=== PATIENT | male | born 1950 | race Caucasian/White ===

== ENCOUNTER 2016-08-14 14:37 | Emergency (ER) | payer MEDICARE, MEDICAID ==
[2016-08-14 15:29] VITALS: BP 170/102
--- NOTE | 2016-08-14 15:48 | UC ---
Lower Extremity/Ankle HPI - HPI Summary HPI Summary: 3 DAYS OF LEFT GREAT TOE PAIN AND REDNESS/SWELLING OF LEFT FOOT AND ANKLE. DENIES ANY TRAUMA OR INJURY. CONCERNED ABOUT THE POSSIBILITY OF GOUT. HAS HAD SIMILAR SX IN THE PAST THAT RESOLVED AFTER TAKING IBUPROFEN. - History of Current Complaint Chief Complaint: UCLowerExtremity Stated Complaint: TOE AND ANKLE PAIN Time Seen by Provider: 08/14/16 15:23 Hx Obtained From: Patient Onset/Duration: Gradual Onset, Lasting Days, Still Present Severity Initially: Moderate Severity Currently: Moderate Pain Intensity: 5 Pain Scale Used: 0-10 Numeric Aggravating Factor(s): Standing, Ambulation Alleviating Factor(s): Rest Able to Bear Weight: Yes - WITH PAIN - Allergies/Home Medications Allergies/Adverse Reactions: Allergies Allergy/AdvReac Type Severity Reaction Status Date / Time No Known Allergies Allergy Verified 08/14/16 15:19 Home Medications: Home Medications Loratadine [Claritin] 1 cap DAILY 08/14/16 [History Confirmed 08/14/16] PMH/Surg Hx/FS Hx/Imm Hx Endocrine History Of: Denies: Diabetes Cardiovascular History Of: Reports: Cardiac Disorders - dx cath x 1: non, Hypertension Denies: Congestive Heart Failure Respiratory History Of: Reports: COPD GI/ History Of: Denies: Renal Disease Other History Of: Negative For: Anticoagulant Therapy - Surgical History Surgical History: Yes Surgery Procedure, Year, and Place: right ankle - Family History Known Family History: Positive: Diabetes - Social History Alcohol Use: Daily Substance Use Type: None Smoking Status (MU): Never Smoked Tobacco - Immunization History Most Recent Influenza Vaccination: Fall 2015 Review of Systems Constitutional: Negative Skin: Other - ERYTHEMA Respiratory: Negative Cardiovascular: Negative Gastrointestinal: Negative Musculoskeletal: Arthralgia, Decreased ROM, Edema All Other Systems Reviewed And Are Negative: Yes Physical Exam Triage Information Reviewed: Yes Appearance: Well-Appearing, No Pain Distress, Well-Nourished Vital Signs: Initial Vital Signs Temp 98.7 F 08/14/16 15:21 Pulse 79 08/14/16 15:21 Resp 18 08/14/16 15:21 BP 170/102 08/14/16 15:21 Pulse Ox 97 08/14/16 15:21 Vital Signs Reviewed: Yes Eyes: Positive: Conjunctiva Clear ENT: Positive: Hearing grossly normal Neck: Positive: Supple Respiratory: Positive: No respiratory distress, No accessory muscle use Cardiovascular: Positive: Pulses Normal - 2+ DP PULSES Abdomen Description: Positive: Soft Musculoskeletal: Positive: ROM Limited @ - LEFT ANKLE, Edema @ - LEFT FOOT AND ANKLE 2+ PITTING EDEMA, Other: - TTP LEFT GREAT TOE Neurological: Positive: Alert Psychological: Positive: Age Appropriate Behavior Skin: Positive: Other - VENOUS STASIS HYPERPIGMENTATION BILATERAL LOWER EXTREMITIES. ERYTHEMA LEFT DISTAL FOOT AND GREAT TOE Diagnostics - Radiology LEFT FOOT/ANKLE XRAYS Xray Interpretation: No Acute Changes Radiology Interpretation Completed By: Radiologist Lower Extremity Course/Dx - Differential Dx/Diagnosis Provider Diagnoses: PROBABLE GOUT LEFT GREAT TOE Discharge - Discharge Plan Condition: Stable Disposition: HOME Prescriptions: predniSONE TAB* [Deltasone TAB*] 40 mg PO DAILY #10 tab Patient Education Materials: Low Purine Diet (ED), Gout (ED) Referrals: Richar Pope MD [Medical Doctor] - 2 Weeks Additional Instructions: YOUR XRAYS TODAY WERE UNREMARKABLE. ONCE YOU ARE SYMPTOM FREE FOR 2 WEEKS FOLLOW -UP WITH YOUR PCP AND GET LAB WORK DONE TO EVALUATE FOR GOUT. IF YOUR URIC ACID LEVEL IS ELEVATED YOU MAY BENEFIT FROM A DAILY MEDICATION TO PREVENT FUTURE GOUTY FLARES.
--- NOTE | 2016-08-14 16:28 | RAD ---
INDICATION: Swelling and pain in the great toe and ankle after eating cheese COMPARISON: None. TECHNIQUE: 3 views of the left foot 3 views of the left ankle were obtained. FINDINGS: The adequately corticated bones are properly aligned. Joint spaces appear maintained. No fracture, dislocation or focal bony abnormality is seen. IMPRESSION: NORMAL RADIOGRAPH OF THE LEFT FOOT AND ANKLE. If the patient's symptoms persist, follow-up imaging is recommended.
== END 2016-08-14 17:00 | disposition home or self-care (01) ==
LOC: UCEAST 14:37
DX: M79.675 Pain in left toe(s) (principal); I10 Essential (primary) hypertension; J44.9 Chronic obstructive pulmonary disease, unspecified
CPT/HCPCS: 99212; G0463

== ENCOUNTER 2019-06-03 09:10 | Emergency (ER) | payer MEDICARE, MEDICAID ==
--- OUTSIDE RECORDS SUMMARY | 2019-06-03 09:19 | XMS REPORT | Continuity of Care Document ---
:1950 External Reference #:[id number] Author Name Elena De Jesus MD (transmitted by agent of provider Darby Grissom) Address [address], [address] [place] [id number] Care Team Providers Name Role Phone Harjeet Blanton MD - Surgery Care Team Information Labor Operator [phone] Elena De Jesus MD - Internal Medicine Care Team Information Labor Operator [phone] Problems Active Problems Provider Date Essential hypertension Richar Pope M.D. Onset: 09/04/2011 Chronic obstructive lung disease Richar Pope M.D. Onset: 09/04/2011 Dyspnea Richar Pope M.D. Onset: 09/04/2011 Obesity Richar Pope M.D. Onset: 09/04/2011 Benign prostatic hypertrophy with Richar Pope M.D. Onset: 09/04/2011 outflow obstruction Electrocardiogram abnormal Haley Daley M.D. Onset: 09/18/2011 Morbid obesity Haley Daley M.D. Onset: 09/18/2011 Umbilical hernia Richar Pope M.D. Onset: 09/26/2011 Benign essential hypertension Haley Daley M.D. 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 Onset: 02/26/2012 Mixed hyperlipidemia Richar Pope M.D. Onset: 04/21/2012 Lymphedema Richar Pope M.D. Onset: 04/21/2012 Acute bronchitis Richar Pope M.D. Onset: 05/05/2012 Primary cardiomyopathy Haley Daley M.D. Onset: 08/01/2012 Coronary arteriosclerosis Haley Daley M.D. Onset: 08/01/2012 Palpitations Haley Daley M.D. Onset: 08/01/2012 Syncope and collapse [place] [facility] Schedule Onset: 08/22/2012 Edema Haley Daley M.D. Onset: 04/19/2014 Tachycardia Haley Daley M.D. Onset: 04/19/2014 Type 2 diabetes mellitus Richar Poep M.D. Onset: 12/16/2015 Adult health examination Richar Pope M.D. Onset: 01/30/2017 Social History Type Date Description Comments Sex Unknown Tobacco Use Start: Unknown Smoked 2/12 pack for 35 Quit in 2004 years ETOH Use Consumes 1 six pack of beer per day ETOH Use Past two days drank a 12 pack each day Tobacco Use Start: Unknown End: Patient is a former Unknown smoker Recreational Drug Use Denies Drug Use Smoking Status Reviewed: 05/26/19 Patient is a former smoker Exercise Type/Frequency Does not exercise Allergies, Adverse Reactions, Alerts Active Allergies Reaction Severity Comments Date Simvastatin Severe Rash 04/21/2012 Inactive Allergies NKDA 09/04/2011 Medications Active Medications SIG Qnty Indications Ordering Date Provider Advair Diskus 1 puff po bid 1units 496 [facility], 05/26/2019 250-50mcg/Dose MD Aerosol Loratadine take one 90caps J30.9 [facility], 05/26/2019 10mg Capsules capsule at MD night daily Proair HFA inhale 1 puff 8.5units J44.9 [facility], 2018 108(90Base) mcg/Act by mouth every MD Aerosol 6 hours Hydrochlorothiazide take 1 tablet 90tabs I10 [facility], 07/23/2018 50mg Tablets by mouth once MD daily Metoprolol Tartrate take 1 tablet 60tabs [facility], 09/22/2012 25mg Tablets by mouth twice MD a day Immunizations CPT Code Status Date Vaccine Reaction Lot # [id number] Given 07/24/2018 Pneumonia Vaccine 31874 Given 07/23/2018 Pneumonia Vaccine 57686 Given 03/24/2018 Fluzone High Dose 09460 Given 03/26/2017 Influenza Virus Vaccine, Quadrivalent, Split, Preservative Free [id number] Given 07/25/2016 Pneumococcal Conjugate no immediate reaction [id number] Vaccine 13 Valent For noted ... hh Intramuscular Use 87393 Given 01/25/2016 Fluzone High Dose Q2037 Given 06/09/2015 Fluvirin Im 3Yrs And Older 45162 Given 04/30/2014 Flu Vaccine Split Virus [id number] Preservative Free For Indiv 3Yr Older Q2039 Given 03/16/2013 Flu Vaccine NOS 09038 Given 09/26/2011 Pneumonia Vaccine [id number] 31236 Given 09/26/2011 Tdap - [id number] Tetanus/Diptheria/Acellular Pertussis [id number] Ordered 03/01/2012 Fluzone High Dose Vital Signs Date Vital Result Comment 05/26/2019 2:00pm Height 67 inches 5'7" Weight 263.00 lb Heart Rate 70 /min BP Systolic Sitting 133 mmHg BP Diastolic Sitting 71 mmHg Body Temperature 97.9 F O2 % BldC Oximetry 94 % BMI (Body Mass Index) 41.2 kg/m2 02/18/2019 3:15pm Height 67 inches 5'7" Weight 260.00 lb with shoes Heart Rate 60 /min BP Systolic Sitting 140 mmHg lue large cuff BP Diastolic Sitting 80 mmHg lue large cuff BP Systolic Standing 132 mmHg lue large cuff BP Diastolic Standing 74 mmHg lue large cuff Respiratory Rate 16 /min BMI (Body Mass Index) 40.7 kg/m2 Ejection Fraction 50-55% echo.08/28/18 Results Test Acquired Date Facility Test Result H/L Range Note Laboratory test 05/26/2019 [facility] Hemoglobin A1c 6.5 5-7 finding Order 02/13/2019 [facility] hemossure negative [address] [place] [address] [phone] Comp Metabolic 02/09/2019 [facility] Sodium 138 mmol/L Normal 135-[address] [place] [address] [phone] Potassium 3.6 mmol/L Normal 3.5-5.0 Chloride 95 mmol/L Low 101-111 Co2 Carbon Dioxide 35 mmol/L High 22-32 Anion Gap 8 mmol/L Normal 2-11 Glucose 125 mg/dL High 70-100 Blood Urea Nitrogen 15 mg/dL Normal 6-24 Creatinine 1.00 mg/dL Normal 0.67-1.17 BUN/Creatinine Ratio 15.0 Normal 8-20 Calcium 9.3 mg/dL Normal 8.6-10.3 Total Protein 7.0 g/dL Normal 6.4-8.9 Albumin 4.4 g/dL Normal 3.2-5.2 Globulin 2.6 g/dL Normal 2-4 Albumin/Globulin Ratio 1.7 Normal 1-3 Total Bilirubin 0.70 mg/dL Normal 0.2-1.0 Alkaline Phosphatase 84 U/L Normal 34-104 Alt 22 U/L Normal 7-52 Ast 21 U/L Normal 13-39 Egfr Non- 74.3 >60 Egfr 89.9 >60 1 Urine Microalbumin 02/09/2019 [facility] Ur Microalbumin 20.7 mg /L Random [address] (mg/L) [place] [address] [phone] Urine Creatinine 162.99 mg/dL Urine Microalbumin/Creatinine 12.7 Normal <31 Laboratory test finding 02/09/2019 [facility] In House Hemoglobin A1c 6.9 5-7 1 Because ethnic data is not always readily available, this report includes an eGFR for both -Americans and non- Americans. The National Kidney Disease Education Program (NKDEP) does not endorse the use of the MDRD equation for patients that are not between the ages of 18 and 70, are , have extremes of body size, muscle mass, or nutritional status, or are non- or non-. According to the National Kidney Foundation, irrespective of diagnosis, the stage of the disease is based on the level of kidney function: Stage Description GFR(mL/min/1.73 m(2)) 1 Kidney damage with normal or decreased GFR 90 2 Kidney damage with mild decrease in GFR 60-89 3 Moderate decrease in GFR 30-59 4 Severe decrease in GFR 15-29 5 Kidney failure <15 (or dialysis) Procedures Date Code Description Status 02/18/2019 34692 EKG Tracing & Interpretation Completed 02/17/2019 514569964 Diabetic Retinal Eye Exam Completed Medical Devices Description No Information Available Encounters Type Date Location Provider Dx Diagnosis Office Visit 02/18/2019 [facility] Harjeet Bright, I10 Essential ( primary) 4:00p Of [facility] DO FACC hypertension E11.9 Type 2 diabetes mellitus without complications F10.20 Alcohol dependence, uncomplicated Z68.41 Body mass index (BMI) 40.0-44.9, adult E66.8 Other obesity J44.9 Chronic obstructive pulmonary disease, unspecified F17.201 Nicotine dependence, unspecified, in remission R94.31 Abnormal electrocardiogram [ECG] [EKG] Office Visit 02/09/2019 2:00p [facility] Internal Elena De Jesus, I10 Essential ( primary) Medicine - [facility] hypertension E11.9 Type 2 diabetes mellitus without complications J44.9 Chronic obstructive pulmonary disease, unspecified Z12.11 Encounter for screening for malignant neoplasm of colon R93.1 Abnormal findings on dx imaging of heart and cor circ Assessments Date Code Description Provider 05/26/2019 E11.9 Type 2 diabetes mellitus without Elena De Jesus MD complications 05/26/2019 I10 Essential (primary) hypertension Elena De Jesus MD 05/26/2019 F10.20 Alcohol dependence, uncomplicated Elena De Jesus MD 05/26/2019 E66.8 Other obesity Elena De Jesus MD 05/26/2019 J44.9 Chronic obstructive pulmonary disease, Elena De Jesus MD unspecified 02/18/2019 I10 Essential (primary) hypertension Harjeet Bright, DO FACC 02/18/2019 E11.9 Type 2 diabetes mellitus without Harjeet Bright, DO FACC complications 02/18/2019 F10.20 Alcohol dependence, uncomplicated Harjeet Bright, DO FACC 02/18/2019 Z68.41 Body mass index (BMI) 40.0-44.9, adult Harjeet Bright, DO FACC 02/18/2019 E66.8 Other obesity Harjeet Bright, DO FACC 02/18/2019 J44.9 Chronic obstructive pulmonary disease, Harjeet Bright, DO FACC unspecified 02/18/2019 F17.201 Nicotine dependence, unspecified, in Harjeet Bright, DO FACC remission 02/18/2019 R94.31 Abnormal electrocardiogram [ECG] [EKG] Harjeet Bright, DO FACC 02/09/2019 I10 Essential (primary) hypertension Elena De Jesus MD 02/09/2019 E11.9 Type 2 diabetes mellitus without Elena De Jesus MD complications 02/09/2019 J44.9 Chronic obstructive pulmonary disease, Elena De Jesus MD unspecified 02/09/2019 Z12.11 Encounter for screening for malignant Elena De Jesus MD neoplasm of colon 02/09/2019 R93.1 Abnormal findings on diagnostic imaging Elena De Jesus MD of heart and coronary circulation Plan of Treatment Future Appointment(s):09/25/2019 1:20 pm - Elena [facility] at [facility] Elena De Jesus MDE11.9 Type 2 diabetes mellitus without complicationsComments:[id number] Essential (primary) hypertensionComments:Your blood pressure is fine. Continue the same medicationFollow up:F/U 4 vcecieG82.20 Alcohol dependence, uncomplicatedComments :UumdjayW95.8 Other obesityComments:Please continue to try to lose gaxqnoH00.9 Chronic obstructive pulmonary disease, unspecifiedComments:I have sent in script for advairReferral:Ruth Wren MD, Pulmonary Diseases Functional Status Description No Information Available Mental Status Description No Information Available Referrals Refer to Reason for Referral Status Appt Date Ruth Wren MD Sent [address] [place] [address] [phone] Jordan Eason MD Closed 02/17/2019 [address] [place] [address] [phone]
[2019-06-03 09:40] VITALS: BP 163/90
--- NOTE | 2019-06-03 11:57 | UC ---
Upper Extremity HPI - HPI Summary HPI Summary: 68 year old male presents with swollen right elbow x 2 days. States he fell a few days ago, and recently afterwards noted elbow swelling. Pain with full felxion, extension. no fever, + mild warms, unable to see if red, no drainage. no prior occurrences, no open wounds/ sores. - History of Current Complaint Chief Complaint: UCUpperExtremity Stated Complaint: SWOLLEN ELBOW Time Seen by Provider: 06/03/19 10:54 Hx Obtained From: Patient ?: No Onset/Duration: Sudden Onset, Lasting Days Severity Initially: Moderate Severity Currently: Moderate Pain Intensity: 8 Pain Scale Used: 0-10 Numeric Location Of Pain: Is Discrete @ - right elbow Aggravating Factor(s): Movement, Lifting Alleviating Factor(s): OTC Meds Associated Signs And Symptoms: Positive: Swelling. Negative: Fever, Weakness, Numbness/Tingling - Allergies/Home Medications Allergies/Adverse Reactions: Allergies Allergy/AdvReac Type Severity Reaction Status Date / Time No Known Allergies Allergy Verified 06/03/19 09:41 Home Medications: Home Medications Hydrochlorothiazide TAB* [Hydrodiuril TAB*] 25 mg PO DAILY 06/03/19 [History Confirmed 06/03/19] PMH/Surg Hx/FS Hx/Imm Hx Previously Healthy: Yes Other History Of: Negative For: Anticoagulant Therapy - Surgical History Surgical History: Yes Surgery Procedure, Year, and Place: right ankle - Family History Known Family History: Positive: Diabetes - Social History Occupation: Retired Alcohol Use: Daily Substance Use Type: None Smoking Status (MU): Former Smoker - Immunization History Most Recent Influenza Vaccination: Fall 2015 Review of Systems All Other Systems Reviewed And Are Negative: Yes Constitutional: Negative: Fever, Chills, Fatigue Motor: Positive: Decreased ROM Musculoskeletal: Positive: Arthralgia, Decreased ROM, Edema, Myalgia Is Patient Immunocompromised?: No Physical Exam Triage Information Reviewed: Yes Appearance: Well-Appearing, No Pain Distress, Well-Nourished Vital Signs: Initial Vital Signs Temp 97.3 F 06/03/19 09:36 Pulse 83 06/03/19 09:36 Resp 19 06/03/19 09:36 BP 163/90 06/03/19 09:36 Pulse Ox 95 06/03/19 09:36 Vital Signs Reviewed: Yes Eyes: Positive: Conjunctiva Clear ENT: Positive: Hearing grossly normal Musculoskeletal: Positive: Strength Intact, ROM Intact - pain with term flex, extension., Edema @ - + swelling at olecranon bursa, moderate, consistent with bursitis. Neurological: Positive: Alert, Muscle Tone Normal Psychological Exam: Normal Psychological: Positive: Normal Response To Family Skin Exam: Normal Skin: Positive: Other - dry skin over elbow. no open wounds/ sores noted, no drainage. mild erythema over elbow, area marked. Upper Extremity Course/Dx - Course Course Of Treatment: Contusion of elbow (bone bruise), infected elbow bursa - Antibiotics as directed - Follow up with orthopedics within 3-5 days for follow up - Keep arm in sling as much as possible - If increased pain, fever/ chills, increased redness return for further treatment - Differential Dx/Diagnosis Provider Diagnosis: Bursitis, olecranon Discharge ED - Sign-Out/Discharge Documenting (check all that apply): Patient Departure All imaging exams completed and their final reports reviewed: Yes - Discharge Plan Condition: Good Disposition: HOME Prescriptions: Cephalexin CAP* [Keflex CAP*] 500 mg PO QID #28 cap Tramadol HCl [Ultram] 50 mg PO Q8H PRN #15 tablet MDD 3 PRN Reason: Pain - Severe Patient Education Materials: Elbow Bursitis (ED) Referrals: Elena De Jesus MD [Primary Care Provider] - Giuseppe Roberts MD [Medical Doctor] - Additional Instructions: Contusion of elbow (bone bruise), infected elbow bursa - Antibiotics as directed - Follow up with orthopedics within 3-5 days for follow up - Keep arm in sling as much as possible - If increased pain, fever/ chills, increased redness return for further treatment - Billing Disposition and Condition Condition: GOOD Disposition: Home
== END 2019-06-03 12:00 | disposition home or self-care (01) ==
LOC: UCEAST 09:10
DX: M70.21 Olecranon bursitis, right elbow (principal); S50.01XA Contusion of right elbow, initial encounter; Z87.891 Personal history of nicotine dependence; W19.XXXA Unspecified fall, initial encounter; Y92.9 Unspecified place or not applicable
CPT/HCPCS: 99213; G0463

== ENCOUNTER 2023-01-02 14:38 | Inpatient (IN) ==
[2023-01-02 18:58] LABS: ABS Eosinophils 0.1 10^3/uL (0.0-0.5); ABS Lymphocytes 0.6 10^3/uL (1.0-4.8); ABS Monocytes 0.5 10^3/uL (0.0-1.1); ABS Neutrophils 5.7 10^3/uL (1.5-7.6); Eosinophil % 1.9 %; Hematocrit 33.2 % (38-53); Hemoglobin 11.3 g/dL (13.2-16.3); Lymphocyte % 8.1 %; Mean Corpuscular Hemoglobin 28.6 pg (27-33); Mean Corpuscular Hgb Conc 34.2 g/dL (31-36); Mean Corpuscular Volume 83.6 fL (80-97); Mean Platelet Volume 7.2 fL (7.5-11.2); Platelet Count 292 10^3/uL (150-450); Red Blood Count 3.97 10^6/uL (4.06-5.63); Red Cell Distribution Width 15.2 % (12-17); White Blood Count 6.9 10^3/uL (3.6-10.2)
[2023-01-02 19:33] LABS: Albumin 3.6 g/dL (3.2-5.2); Calcium 9.2 mg/dL (8.6-10.3); Creatinine, Serum 1.33 mg/dL (0.67-1.17); Globulin 3.5 g/dL (2-4); Potassium 3.3 mmol/L (3.5-5.0); Total Bilirubin 0.5 mg/dL (0.2-1.0); Total Protein 7.1 g/dL (6.4-8.9); eGFR CKD-EPI 56.8 (>60)
[2023-01-02] MEDS ORDERED: Potassium Chlor 20 meq TAB.ER PO ONE ×2 (20:15→20:17)
[2023-01-02] MEDS ORDERED: Dextrose 50% Syringe 50 ml 25 GM/50 ML SYRINGE IV PUSH PRN (20:29)
[2023-01-02] MEDS: Heparin 5000 UNITS/ML 1 mL VIAL SUBCUT SCH (21:16)
[2023-01-02 21:21] LABS: Magnesium 1.6 mg/dL (1.9-2.7)
[2023-01-02] MEDS ORDERED: Magnesium Sulfate 2 gm BAG 2 GM/50 ML BAG IVPB ONE (21:42)
[2023-01-02] MEDS ORDERED: Lactated Ringers 1000 ml BAG 500 ML IV SCH (22:00)
[2023-01-02 22:27] LABS: C Reactive Protein 135.72 mg/L (<8.01)
[2023-01-03 06:30] LABS: ABS Eosinophils 0.2 10^3/uL (0.0-0.5); ABS Lymphocytes 0.8 10^3/uL (1.0-4.8); ABS Monocytes 0.8 10^3/uL (0.0-1.1); ABS Neutrophils 6.6 10^3/uL (1.5-7.6); ABS Nucleated RBC 0.01 10^3/ul; Eosinophil % 2.1 %; Hematocrit 33.2 % (38-53); Hemoglobin 11.3 g/dL (13.2-16.3); Lymphocyte % 9.9 %; Mean Corpuscular Hemoglobin 28.5 pg (27-33); Mean Corpuscular Volume 83.7 fL (80-97); Mean Platelet Volume 7.4 fL (7.5-11.2); Nucleated Red Blood Cells % 0.1 /100 WBC (0.0-0.4); Platelet Count 309 10^3/uL (150-450); Red Blood Count 3.97 10^6/uL (4.06-5.63); Red Cell Distribution Width 14.9 % (12-17); White Blood Count 8.4 10^3/uL (3.6-10.2)
[2023-01-03 06:56] LABS: Calcium 9.2 mg/dL (8.6-10.3); Creatinine, Serum 1.08 mg/dL (0.67-1.17); Magnesium 1.7 mg/dL (1.9-2.7); Potassium 3.3 mmol/L (3.5-5.0); eGFR CKD-EPI 72.9 (>60)
[2023-01-03] MEDS ORDERED: Magnesium Sulfate 2 gm BAG 2 GM/50 ML BAG IVPB ONE (07:36)
[2023-01-03] MEDS: Heparin 5000 UNITS/ML 1 mL VIAL SUBCUT SCH ×2 (08:58→21:22)
[2023-01-03] MEDS: Mometasone/Formoter 200/5 MDI INH SCH ×2 (11:07→20:39)
[2023-01-03] MEDS: Albuterol HFA INHALER 8 gm MDI INH SCH (11:07)
[2023-01-03] MEDS ORDERED: Polyethylene Glycol 3350 17 GM PACKET PO PRN (13:52)
[2023-01-03] MEDS ORDERED: Senna TAB 8.6 mg TAB PO PRN (13:52)
[2023-01-04 06:02] LABS: Hematocrit 30.9 % (38-53); Hemoglobin 10.8 g/dL (13.2-16.3); Mean Corpuscular Hemoglobin 28.8 pg (27-33); Mean Corpuscular Hgb Conc 34.9 g/dL (31-36); Mean Corpuscular Volume 82.4 fL (80-97); Mean Platelet Volume 7.3 fL (7.5-11.2); Platelet Count 270 10^3/uL (150-450); Red Blood Count 3.74 10^6/uL (4.06-5.63); Red Cell Distribution Width 15.2 % (12-17); White Blood Count 7.2 10^3/uL (3.6-10.2)
[2023-01-04 06:39] LABS: Calcium 9.1 mg/dL (8.6-10.3); Creatinine, Serum 0.98 mg/dL (0.67-1.17); Magnesium 1.8 mg/dL (1.9-2.7); Potassium 3.4 mmol/L (3.5-5.0); eGFR CKD-EPI 81.9 (>60)
[2023-01-04] MEDS ORDERED: Magnesium Sulfate IV 1GM/100ML 1 GM/100 ML BAG IV ONE (07:52)
[2023-01-04] MEDS: Heparin 5000 UNITS/ML 1 mL VIAL SUBCUT SCH ×2 (08:30→21:42)
[2023-01-04] MEDS: Mometasone/Formoter 200/5 MDI INH SCH ×2 (08:30→20:17)
[2023-01-04] MEDS: Albuterol HFA INHALER 8 gm MDI INH SCH (08:35)
[2023-01-04] MEDS: Magnesium Hydroxide LIQ 30 ML UDC PO PRN ×2 (16:00→21:45)
[2023-01-04 19:55] LABS: Body Fluid WBC 1333 /mcL
[2023-01-04 20:53] LABS: Body Fluid Mono 21 %; Body Fluid Other Cells 8; Body Fluid Total Cells Counted 200
[2023-01-04] MEDS ORDERED: Magnesium Hydroxide LIQ 30 ML UDC PO SCH (21:00)
[2023-01-04 21:09] LABS: Body Fluid Appearance Bloody; Body Fluid Color Amber; Body Fluid Source Synovial Fluid
[2023-01-05 07:09] LABS: Hematocrit 31.3 % (38-53); Hemoglobin 10.8 g/dL (13.2-16.3); Mean Corpuscular Hemoglobin 28.6 pg (27-33); Mean Corpuscular Hgb Conc 34.5 g/dL (31-36); Mean Corpuscular Volume 82.8 fL (80-97); Mean Platelet Volume 7.1 fL (7.5-11.2); Platelet Count 268 10^3/uL (150-450); Red Blood Count 3.78 10^6/uL (4.06-5.63); Red Cell Distribution Width 14.9 % (12-17); White Blood Count 6.4 10^3/uL (3.6-10.2)
[2023-01-05] MEDS: Albuterol HFA INHALER 8 gm MDI INH SCH (07:24)
[2023-01-05] MEDS: Mometasone/Formoter 200/5 MDI INH SCH ×2 (07:24→19:29)
[2023-01-05 07:25] LABS: Creatinine, Serum 0.91 mg/dL (0.67-1.17); eGFR CKD-EPI 89.5 (>60)
[2023-01-05] MEDS: Heparin 5000 UNITS/ML 1 mL VIAL SUBCUT SCH ×2 (08:32→20:51)
[2023-01-06 06:49] LABS: Hematocrit 31.4 % (38-53); Mean Corpuscular Hemoglobin 29.1 pg (27-33); Mean Corpuscular Hgb Conc 34.9 g/dL (31-36); Mean Corpuscular Volume 83.4 fL (80-97); Mean Platelet Volume 7.1 fL (7.5-11.2); Platelet Count 252 10^3/uL (150-450); Red Blood Count 3.77 10^6/uL (4.06-5.63); Red Cell Distribution Width 15.2 % (12-17); White Blood Count 5.6 10^3/uL (3.6-10.2)
[2023-01-06] MEDS: Albuterol HFA INHALER 8 gm MDI INH SCH (06:57)
[2023-01-06] MEDS: Mometasone/Formoter 200/5 MDI INH SCH ×2 (06:57→20:31)
[2023-01-06 07:03] LABS: Calcium 8.9 mg/dL (8.6-10.3); Creatinine, Serum 0.88 mg/dL (0.67-1.17); Potassium 3.9 mmol/L (3.5-5.0); eGFR CKD-EPI 91.4 (>60)
[2023-01-06] MEDS: Heparin 5000 UNITS/ML 1 mL VIAL SUBCUT SCH ×2 (10:18→21:06)
[2023-01-07] MEDS: Albuterol HFA INHALER 8 gm MDI INH SCH (07:09)
[2023-01-07] MEDS: Mometasone/Formoter 200/5 MDI INH SCH ×2 (07:10→19:58)
[2023-01-07] MEDS: Heparin 5000 UNITS/ML 1 mL VIAL SUBCUT SCH ×2 (08:26→21:25)
[2023-01-08 05:50] LABS: Hematocrit 34.2 % (38-53); Hemoglobin 11.7 g/dL (13.2-16.3); Mean Corpuscular Hemoglobin 28.6 pg (27-33); Mean Corpuscular Hgb Conc 34.2 g/dL (31-36); Mean Corpuscular Volume 83.6 fL (80-97); Mean Platelet Volume 6.9 fL (7.5-11.2); Platelet Count 248 10^3/uL (150-450); White Blood Count 6.9 10^3/uL (3.6-10.2)
[2023-01-08] MEDS: Heparin 5000 UNITS/ML 1 mL VIAL SUBCUT SCH ×2 (08:40→21:31)
[2023-01-08] MEDS: Albuterol HFA INHALER 8 gm MDI INH SCH (08:45)
[2023-01-08] MEDS: Mometasone/Formoter 200/5 MDI INH SCH ×2 (08:46→19:48)
[2023-01-09] MEDS: Albuterol HFA INHALER 8 gm MDI INH SCH (07:45)
[2023-01-09] MEDS: Mometasone/Formoter 200/5 MDI INH SCH ×2 (07:46→20:03)
[2023-01-09] MEDS: Heparin 5000 UNITS/ML 1 mL VIAL SUBCUT SCH ×2 (08:43→22:33)
[2023-01-10 06:10] LABS: Hemoglobin 11.3 g/dL (13.2-16.3); Mean Corpuscular Hgb Conc 34.3 g/dL (31-36); Mean Corpuscular Volume 84.4 fL (80-97); Mean Platelet Volume 7.1 fL (7.5-11.2); Platelet Count 227 10^3/uL (150-450); Red Blood Count 3.91 10^6/uL (4.06-5.63); Red Cell Distribution Width 14.9 % (12-17); White Blood Count 6.2 10^3/uL (3.6-10.2)
[2023-01-10 06:30] LABS: Calcium 9.4 mg/dL (8.6-10.3); Creatinine, Serum 0.9 mg/dL (0.67-1.17); eGFR CKD-EPI 90.7 (>60)
[2023-01-10] MEDS: Heparin 5000 UNITS/ML 1 mL VIAL SUBCUT SCH ×2 (09:06→22:26)
[2023-01-10] MEDS: Albuterol HFA INHALER 8 gm MDI INH SCH (09:11)
[2023-01-10] MEDS: Mometasone/Formoter 200/5 MDI INH SCH ×2 (09:12→19:03)
[2023-01-10 14:32] LABS: B. burgdorferi PCR Negative (Negative); B. garinii/B. afzellii PCR Negative (Negative); Lyme Disease Source SYNOVIAL
[2023-01-11] MEDS: Albuterol HFA INHALER 8 gm MDI INH SCH (06:59)
[2023-01-11] MEDS: Mometasone/Formoter 200/5 MDI INH SCH (06:59)
[2023-01-11] MEDS: Heparin 5000 UNITS/ML 1 mL VIAL SUBCUT SCH (08:57)
[2023-01-11 14:28] VITALS: BP 120/65
== END 2023-01-11 17:45 | disposition home or self-care (01) | DRG 869 ==
LOC: ED 14:38 → SUATTDRO 19:15 → EDHOLD 19:15 → MEDTELE 01-03 02:55 → SSU 01-03 03:28
PROVIDERS: ADMIT Hospitalist; ATTEND Internal Medicine